=== PATIENT | male | born 1965 | race Caucasian/White ===

== ENCOUNTER 2017-11-23 00:55 | Inpatient (IN) | payer OTHER ==
[2013-12-27 10:01] VITALS: Ht 172.7 cm; Wt 111.1 kg
[2017-11-23] VITALS (15 sets, daily range): BP systolic 118–152; BP diastolic 79–99
[~2017-11-23] VITALS: Ht 172.7 cm; Wt 111.1 kg
[~2017-11-23 00:55] MED LIST: CETI-221 PO; IBUP-56 PO; LISI-351 PO; LISI-353 PO; LISI20TA29 PO; METF-420 PO; METO25TA23 PO; METO50TA19 PO; MULT-1335 PO; NAPR220C11 PO; NAPR375T44 PO; NEBI5TAB PO; OXYC-865 PO; OXYC20TA99 PO; RANI-318 PO; TRAM-420 PO
[2017-11-23] MEDS ORDERED: ONDANSETRON 4 MG/2 ML VIAL ONE (07:37)
[2017-11-23] MEDS ORDERED: SUGAMMADEX SOD 200 MG/2 ML SDV ONE (07:37)
[2017-11-23] MEDS ORDERED: PROPOFOL EMUL(*) 10MG/ML 20 ML 20 ML ONE (07:37)
[2017-11-23] MEDS ORDERED: LIDOCAINE MPF 1% 5 ML VIAL ONE (07:37)
[2017-11-23] MEDS ORDERED: ROCURONIUM BROM 10 MG/ML 10 ML ONE (07:37)
[2017-11-23] MEDS ORDERED: DEXAMETHASONE SOD 4 MG/ML VIAL ONE (07:37)
[2017-11-23] MEDS ORDERED: fentaNYL CITR 250 MCG/5 ML AMP ONE (07:38)
[2017-11-23] MEDS ORDERED: KETAMINE HCL 200 MG/20 ML MDV ONE (07:40)
[2017-11-23] MEDS ORDERED: HYDROmorphone HCL 2 MG/ML SDV ONE (07:41)
[2017-11-23] MEDS ORDERED: MIDAZOLAM 2 MG/2 ML VIAL IVP PRN (08:25)
[2017-11-23] MEDS ORDERED: NORMOSOL R SOLN(*) 1000 ML BAG 1,000 ML IV PRN (08:25)
[2017-11-23] MEDS ORDERED: LIDOCAINE/SOD BICARB 8.4% SYR ID ONE (08:25)
[2017-11-23] MEDS ORDERED: ceFAZolin(*) 2GM/D5W 50ML 50 ML IVPB ONE (08:25)
[2017-11-23] MEDS ORDERED: PROPOFOL(*)1000 MG/100 ML VIAL 200 ML ONE (09:20)
[2017-11-23] MEDS ORDERED: LR(*) 1000 ML BAG 1,000 ML IV PRN (12:30)
[2017-11-23] MEDS ORDERED: diphenhydrAMINE 25 MG CAP PO PRN (12:30)
[2017-11-23] MEDS ORDERED: BENZOCAINE/MENTHOL 1 EACH LOZG PO PRN (12:30)
[2017-11-23] MEDS ORDERED: oxyCODONE HCL 5 MG CAP PO PRN (12:30)
[2017-11-23] MEDS ORDERED: DIAZEPAM 5 MG TAB PO PRN (12:30)
[2017-11-23] MEDS ORDERED: FLUSH 10 ML SYR IVP PRN (12:30)
[2017-11-23] MEDS ORDERED: MAGNESIUM HYDROXIDE* 30ML UDCP PO PRN (12:30)
[2017-11-23] MEDS ORDERED: HYDROmorphone HCL 2 MG/ML SDV IVP PRN (12:30)
[2017-11-23] MEDS ORDERED: ACETAMINOPHEN(*)1000 MG/100 ML 100 ML IVPB PRN (12:30)
[2017-11-23] MEDS ORDERED: BISACODYL 10 MG SUPP PR PRN (12:30)
[2017-11-23] MEDS ORDERED: ONDANSETRON 4 MG/2 ML VIAL IVP PRN (12:30)
[2017-11-23] MEDS ORDERED: APAP/HYDROCODONE 325/5 TAB PO PRN (12:30)
[2017-11-23] MEDS ORDERED: METO-253 PO (13:53)
--- NOTE | 2017-11-23 14:16 | Hospitalist Consultation ---
History of Present Illness Requesting Physician Dr. Wren Reason for Consult Medication Management Chief Complaint s/p L5-S1 Anterior Lumbar Interbody Fusion History of Present Illness He was admitted s/p L5-S1 Anterior Lumbar Interbody Fusion. It is reported the surgery went well and without complication. History Problems: (1) Hypertension Status: Chronic (2) Diabetes mellitus, type 2 Status: Chronic (3) Chronic low back pain Status: Chronic Home Meds Reported Medications Metoprolol Tartrate (METOPROLOL TARTRATE) 50 Mg Tab, 1 TAB PO BID, TAB 11/23/17 Metformin Hcl (METFORMIN HCL) 1,000 Mg Tablet, 1 TAB PO BID, TAB 11/16/17 Lisinopril/Hydrochlorothiazide (LISINOPRIL-HCTZ 10-12.5 MG TAB) 1 Each Tablet, 1 EACH PO 07/28/17 Naproxen Sodium (NAPROXEN SODIUM) 220 Mg Capsule, 440 MG PO BID, CAPSULE 07/28/17 Tramadol Hcl (TRAMADOL HCL) 50 Mg Tablet, 1-2 TAB PO Q6H Y for PAIN, #60 05/29/15 Ranitidine Hcl (RANITIDINE HCL) 150 Mg Tablet, 150 MG PO DAILY Y for INDIGESTION 05/24/15 Multivitamin With Minerals (MULTIPLE VITAMIN) 1 Each Tablet, 1 EACH PO DAILY 05/24/15 Discontinued Reported Medications Metoprolol Succinate (METOPROLOL SUCCINATE) 50 Mg Tab.er.24h, 1 TAB PO BID, TAB 07/28/17 Allergies: Coded Allergies: No Known Drug Allergies (Unverified , 12/26/13) Patient History: FH: cancer MOTHER FH: type 2 diabetes FATHER Hx Smoking: Yes (SMOKES 1/2 PPD FOR 32 YEARS. CHEWS TOBACCO 1 CAN Q 3 WEEK FOR 25 YEARS) Smoking Status: Current: Every Day Smoker, Light Tobacco Smoker Exposure to Second Hand Smoke?: Yes Caffeine Intake: Coffee Caffeine/Cups Per Day: 1 POTS A DAY" Hx Alcohol Use: Yes Alcohol Used: Beer, Liquor Hx Substance Use Disorder: No Social Drug Use: Never History of IV Drug Use: No Review of Systems All Systems Reviewed/Normal: Yes, Except as Noted Exam Vital Signs Vital Signs Date Time Temp Pulse Resp B/P (MAP) Pulse Ox O2 Delivery O2 Flow Rate FiO2 11/23/17 13:10 98.3 93 20 152/92 (112) 94 Nasal Cannula 2.0 General Appearance: Alert, Awake, No Acute Distress, Afebrile Neuro: No Gross deficits Cardiovascular: Regular Rate and Rhythm Respiratory: No Respiratory Distress, Clear to Auscultation GI: Abd Soft and Non-Tender Psych: Alert & Oriented X3, Appropriate Mood & Affect Assessment and Plan Problems: (1) S/P lumbar fusion Status: Acute Assessment & Plan: Followed by Dr. Wren. He has no history of DVT or PE. (2) Hypertension Status: Chronic Assessment & Plan: He is on chronic treatment with Metoprolol, Lisinopril, and hydrochlorothiazide. During examination, the patient states he has his own medications with him and he will take his own medications despite what I recommend. I told the patient, I recommend he allow us to manage his blood pressure to assure it does not get too low after having surgery. (3) Diabetes mellitus, type 2 Status: Chronic Assessment & Plan: He is on chronic treatment with Metformin. Venous Thromboembolism Antithrombotics Is Pt On Any Antithrombotics?: No Prophylaxis Tx Contraindicated Pharmacological Contraindicati: Surgical Contraindication CHRISTI MARTINES PULPER Nov 23, 2017 14:15
[2017-11-23] MEDS ORDERED: LABETALOL HCL 100 MG/20ML VIAL ONE (15:19)
--- NOTE | 2017-11-23 15:55 | RADIOLOGY IMAGING REPORT ---
FACILITY: [facility] - [place] PATIENT NAME: Wood Elizabeth : 1965 MR: [id number] V: [id number] EXAM DATE: ORDERING PHYSICIAN: MERLY MCMAHAN TECHNOLOGIST: Location: [facility] Patient: Wood Elizabeth : 1965 Visit/Account:[id number] Date of Sevice: 11/23/2017 Exam type: C-ARM FLUORO 1 HR History: L5-S1 FUSION Comparison: MR lumbar spine April 02, 2017. Findings: Two intraoperative C-arm spot views over the lower lumbar spine demonstrate post surgical changes fro m anterior fusion at L5 and S1. Retractors and surgical treatments project over the operative site. The total continuous fluoroscopy dose is 0.33878 mGray per meter squared. The total fluoroscopy supriya e 27.7 seconds IMPRESSION: 1. As above Report Dictated By: Lalita Stearns MD at 11/23/2017 3:49 PM Report E-Signed By: Lalita Stearns MD at 11/23/2017 3:51 PM WSN:[email or web address]
[2017-11-23] MEDS: ceFAZolin(*) 2GM/D5W 50ML 50 ML IVPB SCH (16:37)
[2017-11-23] MEDS: DOCUSATE SODIUM 100 MG CAP PO SCH (21:07)
[2017-11-23] MEDS: ACETAMINOPHEN 500 MG TAB PO PRN (21:09)
[2017-11-24] MEDS: ceFAZolin(*) 2GM/D5W 50ML 50 ML IVPB SCH ×2 (00:15→08:48)
[2017-11-24 01:06] VITALS: BP 152/88
--- NOTE | 2017-11-24 07:44 | Hospitalist Progress Note ---
Subjective Progress Notes Subjective He has no complaints this morning. He states he is ready to go home. Patient Complains of: Cardiovascular: No: Chest Pain Respiratory: No: Shortness of Breath Physical Exam Vital Signs Date Time Temp Pulse Resp B/P (MAP) Pulse Ox O2 Delivery O2 Flow Rate FiO2 11/24/17 04:08 83 11/24/17 01:06 98.6 110 16 152/88 (109) Nasal Cannula 1.0 General Appearance: Alert, Awake, No Acute Distress, Afebrile Neuro: No Gross deficits Cardiovascular: Regular Rate and Rhythm Respiratory: No Respiratory Distress, Clear to Auscultation Extremities: No Edema Psych: Alert & Oriented X3, Appropriate Mood & Affect Assessment and Plan Problems: (1) S/P lumbar fusion Status: Acute Assessment & Plan: Followed by Dr. Wren. He has no history of DVT or PE. (2) Hypertension Status: Chronic Assessment & Plan: He is on chronic treatment with Metoprolol, Lisinopril, and hydrochlorothiazide. (3) Diabetes mellitus, type 2 Status: Chronic Assessment & Plan: He is on chronic treatment with Metformin. Exam Sepsis Risk: No Definite Risk CHRISTI MARTINES [employer] HELPER November 24, 2017 07:44
[2017-11-24 07:45] VITALS: BP 168/88
[2017-11-24] MEDS ORDERED: DOCU240C84 PO (07:56)
[2017-11-24] MEDS ORDERED: DIA5 PO (07:58)
[2017-11-24] MEDS ORDERED: PER PO (07:59)
[2017-11-24] MEDS: DOCUSATE SODIUM 100 MG CAP PO SCH (08:48)
[2017-11-24] MEDS: ACETAMINOPHEN 500 MG TAB PO PRN (09:11)
--- NOTE | 2017-11-24 15:18 | OPERATIVE REPORT 1 ---
EVENT DATE: November 23, 2017 SURGEON: Haja Wren MD APPROACH SURGEON: José Miguel Mcconnell MD ANESTHESIOLOGIST: Leonel Porras MD ANESTHESIA: General endotracheal anesthesia. PHYSICIAN CREDENTIALING SPECIALIST: Andrews Garcias PA-C PREOPERATIVE DIAGNOSIS L5-S1 nonunion with retained instrumentation. POSTOPERATIVE DIAGNOSIS L5-S1 nonunion with retained instrumentation. PROCEDURES PERFORMED 1. Anterior approach to the L5-S1 disk space. 2. L5-S1 revision fusion with interbody spacer. 3. Removal of deep retained implant. INTRAVENOUS FLUIDS 1900 mL ESTIMATED BLOOD LOSS 50 mL IMPLANTS USED A 12-degree lordotic, 12 mm high, size large interbody implant from [employer] and 4.5 mm x 25 mm fixation screws times three, also from [employer]. SPECIMENS None. DRAINS None. DISPOSITION Post-anesthesia care unit. INDICATIONS FOR SURGERY Mr. Elizabeth is a 51-year-old male who is several years status post L4-L5 and L5- S1 transforaminal lumbar interbody fusion. Immediately following that surgery, he did relatively well, but then developed gradually worsening low back pain. Ultimately, his instrumentation broke down, and he had a fracture of one of his S1 screws, and the posterior instrumentation was removed. He continued to have significant low back pain, and by the time he saw me, he had failed nonsurgical care, including activity modifications, medications, physical therapy, etc. We obtained a CT scan that showed a nonunion at that L5-S1 level with motion on flexion/extension views and no evidence of solid fusion on CT scan. Secondary to all of this, he was offered and elected to undergo a revision surgery, specifically anterior lumbar interbody fusion at L5-S1 with removal of the previously placed PEEK cage. Prior to the surgery, I explained in detail to the patient the possible risks of surgery. These risks include bleeding, infection, damage to bowel and bladder, spinal nerve injury, spinal fluid leak, persistent and/or worsening pain, retrograde ejaculation, sexual dysfunction, autonomic nervous system dysfunction, , blindness, and other unforeseen medical and surgical complications. He voiced an understanding and wished to proceed. DESCRIPTION OF PROCEDURE On the day of surgery, the patient was met in the preoperative hold area, and all questions were answered. His operative site was identified and marked by myself. He was brought to the operating room in good condition, and after succumbing to anesthesia, was positioned in the supine position on a radiolucent Justen table. All bony protuberances and soft tissues were well padded in the standard fashion. Care was taken to maintain appropriate perfusion pressures during anesthesia. Preoperative antibiotics were administered according to the appropriate timing schedule. At the conclusion of the procedure, sponge and needle counts were correct times two. A final timeout was undertaken by members of the operating team to confirm correct patient, correct levels, and correct surgery. He was prepped and draped in the standard sterile fashion, and Dr. Mcconnell, our approach surgeon , performed a standard retroperitoneal anterior approach to L5-S1. Please refer to his dictation for a description of that portion of the procedure. Once the L5-S1 disk space had been fully exposed and self-retaining retractors were placed, I utilized a #15 blade on the long handle to perform an anterior annulotomy at L5-S1. Pituitary rongeur was used to remove the outer annulus, and some of the nucleus pulposus, easily exposing the previously placed PEEK interbody implant. A combination of osteotomes and Fernandez elevators were used to fully free the implants from the surrounding bone and soft tissue, and I was then able to remove that implant using a curette and a tenaculum. The implant came out in two pieces, which we then fit back together to ensure that all pieces of the PEEK implant had been removed. There was a clear nonunion based upon the ease with which the implant was removed. We then further prepared the endplates of S1 and L5 to ensure that all cartilaginous remnants and disk fragments had been removed. I ensured that there was bleeding across both bony surfaces and that we had cleared out the posterolateral aspect of the disks as well to allow placement of an appropriate sized interbody graft. A 12 mm high, 12-degree lordotic size large trial was placed into the interbody space and fluoroscopic images obtained that showed excellent placement of the device. We then packed a 12 mm high, size large, 12-degree lordotic interbody graft with [employer], and under fluoroscopic guidance, inserted that implant into the L5-S1 interbody space. Once we were satisfied with the positioning of the device, the awl was used through the holes in the spacer to penetrate the endplates at the midline of S1 and in the parasagittal region bilaterally at L5. Screws 25 mm length were selected and placed under fluoroscopic guidance. We had excellent fixation of all screws. Final imaging studies were obtained, and the wound then irrigated with copious sterile saline solution. We then closed in layers using a running stitch for the anterior rectus sheath, followed by an inverted, interrupted suture for the subcutaneous tissue, and then a running subcuticular skin stitch. Sponge and needle counts were correct times two. POSTOPERATIVE CARE PLAN Mr. Elizabeth will remain in hospital overnight. Should he do well enough, he will possibly be discharged home on postoperative day #1. He will then follow up with me in two weeks' time for examination and wound check. ANGELICA
== END 2017-11-24 10:10 | disposition home or self-care (01) | DRG 460 ==
LOC: OR 00:55 → MED 13:00
PROVIDERS: ADMIT Orthopaedic Surgery; ATTEND Orthopaedic Surgery
PROC: 0SP30AZ Removal of Interbody Fusion Device from Lumbosacral Joint, Open Approach (ICD-10-PCS; 2017-11-23)
PROC: 0SG30A0 Fusion of Lumbosacral Joint with Interbody Fusion Device, Anterior Approach, Anterior Column, Open Approach (ICD-10-PCS; principal; 2017-11-23 09:15)
DX: M96.0 Pseudarthrosis after fusion or arthrodesis (principal); T84.018A Broken internal joint prosthesis, other site, initial encounter; I10 Essential (primary) hypertension; E11.9 Type 2 diabetes mellitus without complications; G89.29 Other chronic pain; G47.33 Obstructive sleep apnea (adult) (pediatric); K21.9 Gastro-esophageal reflux disease without esophagitis; Y79.3 Surgical instruments, materials and orthopedic devices (including sutures) associated with adverse incidents; Z79.84 Long term (current) use of oral hypoglycemic drugs; Z87.891 Personal history of nicotine dependence
CPT/HCPCS: 36415; 36416; 76000; 82948; 86850; 86900; 86901; 97161; C1713; J0690; J1100; J1170; J2001; J2250; J2405; J2704; J3010; J3490